=== PATIENT | male | born 1975 | race Asian ===

== ENCOUNTER 2019-02-19 23:03 | Emergency (ER) | payer OTHER ==
[~2019-02-19] VITALS: Ht 170.2 cm; Wt 71.0 kg
[2019-02-20] MEDS ORDERED: TETANUS, DIPHTHERIA, PERTUSSIS VAC/PF 0.5ML (>7YR OLD) IM ONE
[2019-02-20 00:13] VITALS: BP 139/82
== END 2019-02-20 00:15 | disposition home or self-care (01) ==
LOC: ER 23:53
DX: S01.01XA Laceration without foreign body of scalp, initial encounter (principal); W22.8XXA Striking against or struck by other objects, initial encounter; Y93.89 Activity, other specified; Y92.89 Other specified places as the place of occurrence of the external cause; Y99.8 Other external cause status
CPT/HCPCS: 12002; 90471; 90715; 99283

== ENCOUNTER 2019-02-27 09:47 | Emergency (ER) | payer OTHER ==
[~2019-02-27] VITALS: Ht 170.2 cm; Wt 71.0 kg
[2019-02-27 11:58] VITALS: BP 152/95
== END 2019-02-27 11:49 | disposition home or self-care (01) ==
LOC: ER 09:47
DX: S01.01XD Laceration without foreign body of scalp, subsequent encounter (principal); X58.XXXD Exposure to other specified factors, subsequent encounter
CPT/HCPCS: 99281

== ENCOUNTER 2019-03-04 08:52 | Emergency (ER) | payer OTHER ==
[~2019-03-04] VITALS: Ht 170.2 cm; Wt 70.0 kg
[2019-03-04 09:06] VITALS: BP 146/94
== END 2019-03-04 09:20 | disposition home or self-care (01) ==
LOC: ER 08:52
DX: S01.91XD Laceration without foreign body of unspecified part of head, subsequent encounter (principal); X58.XXXD Exposure to other specified factors, subsequent encounter
CPT/HCPCS: 99281